=== PATIENT | male | born 1995 | race Caucasian/White ===

== ENCOUNTER 2019-07-24 20:31 | Emergency (ER) | payer BC, SELFPAY ==
[~2019-07-24] VITALS: Ht 177.8 cm; Wt 68.2 kg
[2019-07-24] MEDS ORDERED: ONDANSETRON 4MG/2ML VIAL (J2405) IV ONE (21:00)
[2019-07-24] MEDS ORDERED: PANTOPRAZOLE 40MG INJ (PROTONIX) (C9113) IV ONE (21:00)
[2019-07-24] MEDS ORDERED: NS 1,000 ML IV ONE ×2 (21:00→21:30)
[2019-07-24] MEDS ORDERED: KETOROLAC 30 MG/ML VIAL (J1885) IV ONE (21:00)
[2019-07-24 21:04] LABS: BASO % 0.4 % (0.0-1.0); EOS % 0.2 % (0.0-3.0); HEMOGLOBIN 15.5 g/dl (13.5-17.5); LYMPH # 0.8 10^3/uL (1.5-5.0); LYMPH % 9.2 % (24.0-44.0); MEAN CORPUSCULAR HEMOGLOBIN 30.4 pg (27.0-33.0); MEAN CORPUSCULAR HGB CONC 35.2 g/dl (32.0-36.5); MEAN CORPUSCULAR VOLUME 86.3 fl (80.0-96.0); MONO # 0.5 10^3/uL (0.0-0.8); MONO % 6.2 % (0.0-5.0); NEUTROPHILS # 6.8 10^3/uL (1.5-8.5); NEUTROPHILS % 83.9 % (36.0-66.0); PLATELET COUNT, AUTOMATED 200 10^3/uL (150-450); WHITE BLOOD COUNT 8.1 10^3/uL (4.0-10.0)
[2019-07-24 21:32] LABS: ALBUMIN 4.1 GM/DL (3.2-5.2); ALT/SGPT 34 U/L (12-78); BILIRUBIN,DIRECT 0.4 MG/DL (0.0-0.2); BILIRUBIN,TOTAL 1.7 MG/DL (0.2-1.0); BLOOD UREA NITROGEN 18 MG/DL (7-18); CALCIUM LEVEL 8.7 MG/DL (8.5-10.1); CARBON DIOXIDE LEVEL 26 MEQ/L (21-32); CHLORIDE LEVEL 104 MEQ/L (98-107); CREATININE FOR GFR 0.82 MG/DL (0.70-1.30); GLOMERULAR FILTRATION RATE > 60.0 (>60); GLUCOSE, FASTING 110 MG/DL (70-100); LIPASE 139 U/L (73-393); POTASSIUM SERUM 3.7 MEQ/L (3.5-5.1); SODIUM LEVEL 138 MEQ/L (136-145); TOTAL PROTEIN 7.6 GM/DL (6.4-8.2)
[2019-07-24] MEDS ORDERED: ZOFR4TAB16 PO (22:27)
[2019-07-24] MEDS ORDERED: PROMETHAZINE INJ 25 MG/ML VIAL (J2550) IV ONE (22:30)
[2019-07-24 22:52] VITALS: BP 123/54
== END 2019-07-24 23:35 | disposition home or self-care (01) ==
LOC: M ED 20:31
DX: R11.2 Nausea with vomiting, unspecified (principal); R19.7 Diarrhea, unspecified; Z88.2 Allergy status to sulfonamides
CPT/HCPCS: 80048; 80076; 83690; 85025; 96361; 96374; 96375; 99284; C9113; J1885; J2405

== ENCOUNTER 2021-10-12 23:46 | Inpatient (IN) | payer SELFPAY ==
[~2021-10-12] VITALS: Ht 177.8 cm; Wt 68.2 kg
[~2021-10-12 23:46] MED LIST: ZOFR4TAB16 PO
[2021-10-13 00:22] LABS: HEMATOCRIT 45.2 % (42.0-52.0); HEMOGLOBIN 15.9 g/dl (13.5-17.5); MEAN CORPUSCULAR HEMOGLOBIN 29.9 pg (27.0-33.0); MEAN CORPUSCULAR HGB CONC 35.2 g/dl (32.0-36.5); MEAN CORPUSCULAR VOLUME 85.1 fl (80.0-96.0); PLATELET COUNT, AUTOMATED 229 10^3/uL (150-450); RED BLOOD COUNT 5.31 10^6/uL (4.30-6.10); WHITE BLOOD COUNT 8.7 10^3/uL (4.0-10.0)
[2021-10-13 00:58] LABS: ALBUMIN 4.9 GM/DL (3.2-5.2); ALT/SGPT 40 U/L (12-78); BILIRUBIN,DIRECT 0.3 MG/DL (0.0-0.2); BILIRUBIN,TOTAL 0.9 MG/DL (0.2-1.0); BLOOD UREA NITROGEN 13 MG/DL (7-18); CALCIUM LEVEL 9.5 MG/DL (8.5-10.1); CARBON DIOXIDE LEVEL 24 MEQ/L (21-32); CHLORIDE LEVEL 103 MEQ/L (98-107); CREATININE FOR GFR 1.01 MG/DL (0.70-1.30); ETHYL ALCOHOL (ETHANOL) < 0.003 % (0.000-0.010); GLOMERULAR FILTRATION RATE > 60.0 (>60); GLUCOSE, FASTING 131 MG/DL (70-100); POTASSIUM SERUM 3.2 MEQ/L (3.5-5.1); SALICYLATE LEVEL 1.8 MG/DL (5.0-30.0); SODIUM LEVEL 139 MEQ/L (136-145); TOTAL PROTEIN 8.3 GM/DL (6.4-8.2)
[2021-10-13 00:59] LABS: ACETAMINOPHEN LEVEL < 2.0 UG/ML (10.0-30.0)
[2021-10-13] MEDS ORDERED: LORazepam 2 MG TAB PO ONE (02:00)
[2021-10-13 02:12] LABS: AMPHETAMINES LEVEL URINE NEGATIVE (NEGATIVE); BARBITURATES URINE NEGATIVE (NEGATIVE); BENZODIAZEPINES URINE NEGATIVE (NEGATIVE); CANNABINOIDS URINE POSITIVE (NEGATIVE); COCAINE METABOLITE URINE NEGATIVE (NEGATIVE); METHADONE URINE NEGATIVE (NEGATIVE); OPIATES URINE NEGATIVE (NEGATIVE); PHENCYCLIDINE URINE NEGATIVE (NEGATIVE)
[2021-10-13] MEDS ORDERED: HOME MED LIST COMPLETE! XX SCH (04:00)
[2021-10-13] MEDS ORDERED: POTASSIUM CHLORIDE 10MEQ SR TABLET PO ONE (08:25)
[2021-10-13] MEDS ORDERED: LORazepam 2 MG TAB PO STA (17:29)
[2021-10-13] MEDS ORDERED: MOM 30ML SUSPENSION UDC PO PRN (21:10)
[2021-10-13] MEDS ORDERED: ACETAMINOPHEN TAB 650MG DOSE (2X325MG) PO PRN (21:10)
[2021-10-13] MEDS ORDERED: MAALOX 30 ML SUSP *UDC PO PRN (21:10)
[2021-10-14 00:32] VITALS: BP 133/96
[2021-10-14] MEDS: OLANZapine ORAL DISINTEGRATING TAB 5MG PO PRN ×2 (01:02→08:32)
[2021-10-14 14:56] LABS: BLOOD UREA NITROGEN 15 MG/DL (7-18); CALCIUM LEVEL 9.3 MG/DL (8.5-10.1); CARBON DIOXIDE LEVEL 30 MEQ/L (21-32); CHLORIDE LEVEL 105 MEQ/L (98-107); CREATININE FOR GFR 1.04 MG/DL (0.70-1.30); GLOMERULAR FILTRATION RATE > 60.0 (>60); GLUCOSE, FASTING 99 MG/DL (70-100); POTASSIUM SERUM 3.4 MEQ/L (3.5-5.1); SODIUM LEVEL 140 MEQ/L (136-145)
[2021-10-14 18:35] VITALS: BP 143/77
[2021-10-14] MEDS: traZODone 50 MG TAB PO PRN (20:44)
[2021-10-14] MEDS ORDERED: ARIPiprazole 2 MG TAB PO SCH (21:00)
[2021-10-14] MEDS ORDERED: traZODone 50 MG TAB PO SCH (21:00)
[2021-10-15] MEDS: OLANZapine ORAL DISINTEGRATING TAB 5MG PO PRN (05:16)
[2021-10-15 06:50] VITALS: BP 156/90
[2021-10-15 07:00] LABS: CHOLESTEROL RISK RATIO 1.887 (<5)
[2021-10-15 08:02] VITALS: BP 140/86
[2021-10-15] MEDS ORDERED: NICOTINE 14 MG/24 HR TRANSDERMAL TD PRN (13:50)
[2021-10-15] MEDS: SERTRALINE HCL 50 MG TAB PO SCH (14:46)
[2021-10-15] MEDS: busPIRone 5 MG TAB PO SCH ×2 (15:44→20:19)
[2021-10-15 18:55] VITALS: BP 130/86
[2021-10-15] MEDS: traZODone 50 MG TAB PO PRN (20:20)
[2021-10-15 21:00] VITALS: BP 150/90
[2021-10-15] MEDS: hydrOXYzine 50 MG TAB PO PRN (21:10)
[2021-10-15 22:00] VITALS: BP_SYST 70
[2021-10-16 06:39] VITALS: BP 148/94
[2021-10-16] MEDS: busPIRone 5 MG TAB PO SCH ×3 (08:06→20:08)
[2021-10-16] MEDS: SERTRALINE HCL 50 MG TAB PO SCH (08:06)
[2021-10-16] MEDS: hydrOXYzine 50 MG TAB PO PRN (09:44)
[2021-10-16 18:22] VITALS: BP 127/58
[2021-10-16] MEDS: hydrOXYzine 25 MG TAB PO PRN ×2 (19:20→23:46)
[2021-10-16] MEDS ORDERED: ARIPiprazole 2 MG TAB PO SCH (21:00)
[2021-10-17 06:13] VITALS: BP 124/79
[2021-10-17] MEDS: busPIRone 5 MG TAB PO SCH (08:02)
[2021-10-17] MEDS: SERTRALINE HCL 50 MG TAB PO SCH (08:02)
[2021-10-17] MEDS ORDERED: HYDR-3363 PO (09:03)
[2021-10-17] MEDS ORDERED: NICO14PA TD (09:03)
[2021-10-17] MEDS ORDERED: BUSP10TA PO (09:03)
[2021-10-17] MEDS ORDERED: TRAZ-252 PO (09:03)
[2021-10-17] MEDS ORDERED: SERT50TA29 PO (09:03)
[2021-10-17] MEDS ORDERED: ABIL1TAB13 PO (09:03)
== END 2021-10-17 12:53 | disposition home or self-care (01) | DRG 753 ==
LOC: M ED 23:46 → M ED INP 10-13 21:08 → M PSY 10-14 00:32
PROVIDERS: ADMIT Student in an Organized Health Care Education/Training Program; ATTEND Student in an Organized Health Care Education/Training Program
DX: F31.9 Bipolar disorder, unspecified (principal); F32.A Depression, unspecified; F43.10 Post-traumatic stress disorder, unspecified; F12.90 Cannabis use, unspecified, uncomplicated; F17.200 Nicotine dependence, unspecified, uncomplicated; Z88.2 Allergy status to sulfonamides